=== PATIENT | male | born 1965 | race Caucasian/White ===

== ENCOUNTER → 2019-04-15 | Outpatient (CLI) | payer OTHER ==
--- NOTE | 2019-04-15 11:24 | PCVCIMAG ---
APPROVED REPORT Indications Bruit Doppler Spectral Velocity Analysis PSV / EDVPSV / EDV ECA (R) 79 / 14 cm/sECA (L) 95 / 25 cm/s dICA (R) 61 / 23 cm/sdICA (L) 28 / 91 cm/s Julián (R) 68 / 29 cm/smICA (L) 82 / 37 cm/s pICA (R) 62 / 22 cm/spICA (L) 51 / 13 cm/s Bulb (R) 72 / 25 cm/sBulb (L) 65 / 25 cm/s dCCA (R) 73 / 26 cm/sdCCA (L) 89 / 31 cm/s mCCA (R) 94 / 29 cm/smCCA (L) 103 / 32 cm/s Vert (R) 39 / 17 cm/sVert (L) 31 / 8 cm/s ICA/CCA ICA/CCA Findings The right carotid bulb has mild plaque. The right proximal internal carotid artery shows no significant stenosis. The right common carotid artery shows no significant stenosis. The right external carotid artery shows no significant stenosis. The left carotid bulb has moderate plaque. The left proximal internal carotid artery shows <40% stenosis. The left common carotid artery shows no significant stenosis. The left external carotid artery shows no significant stenosis. Conclusion 1. Right internal carotid artery plaquing without significant stenosis. 2. Left internal carotid artery stenosis (<40%) 3. Antegrade vertebral flow
== END | disposition home or self-care (01) ==
LOC: PCVCIMAG 10:52
PROVIDERS: ATTEND Internal Medicine Cardiovascular Disease
DX: I65.23 Occlusion and stenosis of bilateral carotid arteries (principal); I25.10 Atherosclerotic heart disease of native coronary artery without angina pectoris; I10 Essential (primary) hypertension; Z87.891 Personal history of nicotine dependence; Z88.8 Allergy status to other drugs, medicaments and biological substances
CPT/HCPCS: 93880

== ENCOUNTER → 2019-06-07 | Outpatient (CLI) | payer OTHER ==
--- NOTE | 2019-06-07 12:39 | PCVCIMAG ---
APPROVED REPORT Imaging Protocol: Rest Tc-99m/Stress Tc-99m 1 day Study performed: 06/07/2019 09:42:06 Indication: CAD, Lightheadedness Patient Location: Out-Patient Stress Nurse: Nicole Gonzalez RN, Leandra Whittington RN ID Tech:Shivam Valdivia NMTCB Ht: 6 ft 0 in Wt: 245 lbs BSA: 2.32 m2 HR: 77 bpm BP: 136/80 mmHg BMI: 33.22 Rhythm: Sinus Rhythm, Incomplete RBBB Medical History Medical History: Age, Hyperlipidemia, HTN, CAD, [place], Former Smoker Medications: ASA, Atorvastatin, Toprol XL, Zetia, Vascepa Allergies: PCN Previous Cardiac Procedures: [place] Meds Held (24 hrs): Toprol XL Resting Data Rest SPECT myocardial perfusion imaging was performed in supine position 45 minutes following the intravenous injection of 10.7 mCi of Tc-99m Sestamibi. Time of rest injection: 944 Date: 06/07/2019 Administration Route: IV Administration Site: Right AC Exercise Stress At peak stress, the patient was injected intravenously with 28.8mCi of Tc-99m Sestamibi. Time of stress injection: 1215 Date: 06/07/2019 Administration Route: IV Administration Site: Right AC Patient continued to exercise for 11 minute(s). Gated Stress SPECT was performed 30 minutes after stress injection. The images were gated to evaluate regional wall motion and calculate left ventricular ejection fraction. Stress Test Details Stress Test: Exercise stress testing was performed using a Brigido protocol. HRMax Heart Rate (APMHR): 167 bpm Resting HR: 77 bpmTarget HR (85% APMHR): 141 bpm Max HR Achieved: 144 bpm % of APMHR: 86 Recovery HR: 95 bpm BP Resting BP: 136/80 mmHg Max BP: 166/80 mmHg Recovery BP: 142/70 mmHg ECG Resting ECG: Sinus Rhythm, Incomplete RBBB Stress ECG: Sinus Rhythm, Incomplete RBBB ST Change: Non-ischemic Maximum ST Deviation: 0 mm Arrhythmia: PVC's Recovery ECG: Sinus Rhythm, Incomplete RBBB Recovery ST Change: None Clinical Reason for Termination: Maximal effort Stress Symptoms: Dyspnea Exercise duration: 11 min 30 sec Exercise capacity: 13.70 METs Overall Exercise Capacity for Age: Excellent Scale: Active Angina Score: None Symptoms resolved during recovery. Stress ECG Conclusion Delcid Treadmill Score is 11.0 which is Low risk. Study Quality Study: Good Study Data Post stress, the left ventricular ejection was 59%.. SSS: 3 SRS: 8 SDS: 1 TID = 0.75. Perfusion There is a medium area of mildly reduced uptake in the basal segment of the inferolateral wall which is seen on the stress images as well as the resting images. This area is hypokinetic and is most consistent with myocardial scar. Wall Motion Normal left ventricular wall motion. Nuclear Conclusion ECG Findings: negative for ischemia Clinical Findings: negative for ischemia Nuclear Findings: positive for infarct Exercise Capacity: normal Left Ventricular Function: normal This study reveals a small infarct in the basal inferolateral segment. There is normal LV systolic function, with hypokinesis of the basal inferolateral wall.
== END | disposition home or self-care (01) ==
LOC: PCVCIMAG 09:29
PROVIDERS: ATTEND Internal Medicine Cardiovascular Disease
DX: I25.10 Atherosclerotic heart disease of native coronary artery without angina pectoris (principal); E78.00 Pure hypercholesterolemia, unspecified; I10 Essential (primary) hypertension; R60.9 Edema, unspecified; Z88.0 Allergy status to penicillin; Z88.8 Allergy status to other drugs, medicaments and biological substances; Z79.82 Long term (current) use of aspirin; Z79.899 Other long term (current) drug therapy; Z87.891 Personal history of nicotine dependence; Z72.89 Other problems related to lifestyle; Z95.5 Presence of coronary angioplasty implant and graft
CPT/HCPCS: 78452; 93017; A9500